=== PATIENT | male | born 1960 | race Caucasian/White ===

== ENCOUNTER 2022-04-04 07:36 | Outpatient (RCR) | payer OTHER, BC, SELFPAY | END 2023-03-20 11:04 | disposition home or self-care (01) | PROVIDERS: PCP Family Medicine; Visit Provider Orthopaedic Surgery | DX: S52.301S Unspecified fracture of shaft of right radius, sequela (principal); Z51.89 Encounter for other specified aftercare | CPT/HCPCS: 97530 ==

== ENCOUNTER 2023-05-18 12:51 | Emergency (ER) | payer BC, SELFPAY ==
[2023-05-18 13:10] VITALS: BP 134/72; PULSE 77; RESP 16; TEMP 36.2; O2SAT 98; BMI 28.9
--- NOTE | 2023-05-18 13:16 | ED.NURSE ---
Patient's TDap was 04/13/2021 according to the [facility] immunization report.
--- NOTE | 2023-05-18 13:29 | ED_ITS ---
HPI - General Adult General Chief complaint: Laceration/Wound Stated complaint: left hand laceration/work comp Time Seen by Provider: 05/18/23 13:15 History of Present Illness HPI narrative: Patient reports that he cut himself with a pocket knife on his index and long finger on the dorsum over the mid phalanx. He has got a couple of small lacerations there. They are not bleeding now. He is not certain was last tetanus shot was. We did check and he is up-to-date. No range of motion deficit of the hand Related Data Home Medications Medication Instructions Recorded Confirmed No Known Home Medications 09/13/22 10/11/22 Allergies Allergy/AdvReac Type Severity Reaction Status Date / Time No Known Drug Allergies Allergy Verified 10/11/22 13:30 Review of Systems Narrative: No prior similar injury PFSH PFS Medical History Skin cancer ?C44.90 - Unspecified malignant neoplasm of skin, unspecified (ICD-10) Surgical History History of left hip replacement ?Z96.642 - Presence of left artificial hip joint (ICD-10) History of foot surgery ?Z98.890 - Other specified postprocedural states (ICD-10) History of open reduction and internal fixation (ORIF) procedure (04/13/22) ?Z98.890 - Other specified postprocedural states (ICD-10) Social History Smoking Status: Never smoker Exam Narrative: Exam Narrative: Objective vital signs on are within normal limits Over the dorsum of the index and long finger there is tangential small lacerations are non gaping and non bleeding ;neurovascular exam of the hand and range of motion of the fingers is normal. Sensation is normal. Const: Vital Signs, click to edit/add: Vital Signs - 24 hr 05/18/23 13:10 Temperature 97.1 F L Pulse Rate [Right Pulse Oximeter] 77 Respiratory Rate 16 Blood Pressure [Ri ght Upper Arm] 134/72 Pulse Oximetry 98 Oxygen Delivery Me thod Room Air Course Vital Signs Vital signs: Initial Vital Signs Temperature 97.1 F L 05/18/23 13:10 Temperature Source Temporal Artery Scan 05/18/23 13:10 Pulse Rate 77 05/18/23 13:10 Respiratory Rate 16 05/18/23 13:10 Blood Pressure 134/72 05/18/23 13:10 Blood Pressure Mean 92 05/18/23 13:10 Blood Pressure Position Sitting 05/18/23 13:10 Pulse Oximetry 98 05/18/23 13:10 Oxygen Delivery Method Room Air 05/18/23 13:10 Vital Signs Temperature 97.1 F L 05/18/23 13:10 Pulse Rate 77 05/18/23 13:10 Respiratory Rate 16 05/18/23 13:10 Blood Pressure 134/72 05/18/23 13:10 Pulse Oximetry 98 05/18/23 13:10 Oxygen Delivery Method Room Air 05/18/23 13:10 Temperature 97.1 F L 05/18/23 13:10 Pulse Rate 77 05/18/23 13:10 Respiratory Rate 16 05/18/23 13:10 Blood Pressure 134/72 05/18/23 13:10 Pulse Oximetry 98 05/18/23 13:10 Oxygen Delivery Method Room Air 05/18/23 13:10 Medical Decision Making MDM Narrative Medical decision making narrative: The patient has small non gaping wounds that do not appear to involve neurovascular tendon structures in his fingers. Procedure after sterile scrub the wounds were closed with Dermabond with good skin edge approximation good hemostasis. The patient's kidneys dry for the next 2-3 days, then may cover with a bandage or shower bathe as normal. Recheck as needed. Watch for redness infection. Discharge Plan Discharge Clinical Impression: Laceration Patient Disposition: Home, Self-Care Condition: Improved Additional Instructions: Keep dry x 3 days, watch for redness, return as needed Activity Level: Light activity Discharge Diet: Regular Prescriptions: No Action No Known Home Medications Follow Up/Referrals: Willie Torres MD [Primary Care Provider] - Stand Alone Forms: [employer] Info Instructions
== END 2023-05-18 13:46 | disposition home or self-care (01) ==
LOC: ED 13:43
PROVIDERS: Emergency Provider Family Medicine; PCP Family Medicine
DX: S61.412A Laceration without foreign body of left hand, initial encounter (principal); W26.0XXA Contact with knife, initial encounter
CPT/HCPCS: 12001; 99282; 99283

== ENCOUNTER 2025-03-06 08:19 | Emergency (ER) | payer BC, SELFPAY ==
--- OUTSIDE RECORDS SUMMARY | 2025-03-06 08:22 | XMS_ITS | Clinical Summary ---
Author Organization [facility] Address [address] [place] [id number] Care Team Providers Care Ship'S Pilot Name Role Phone Willie Torres MD Primary Care Provider [phone] Source Comments You are receiving this document as you are listed as the primary care provider,follow-up provider, or the patient has been referred to you for consultation.This is in compliance with the Medicare and[facility] EHR Incentive Program,which states Providers who transition their patient to another setting of careor provider of care or refers their patient to another provider of care shouldprovide summary care record for each transition of care or referral. [facility] Desk Allergies No known active allergies Medications Multiple Vitamin (MULTI-VITAMIN OR) Take by mouth. 07/08/20 14 Active omega-3 fatty acids (FISH OIL) 1000 MG capsule Take by mouth. 07/08/20 14 Active Jecnsd-PYD-U-Mn -Dayna-Felton (MSM GLUCOSAMINE COMPLEX OR) Take by mouth. 07/08/20 14 Active acetaminophen (AKA TYLENOL EXTRA STRENGTH) 500 MG tablet Take 1,000 mg by mouth 2 times daily at 8 am and 2 pm. Maximum 4000mg per 24 hours 08/06/20 14 Active azithromycin (AKA ZITHROMAX) 250 MG tablet Indications: PN: 10/07/19 15 Active predniSONE (AKA DELTASONE) 10 MG tablet Indications: PN: 10/07/19 15 Active enoxaparin (LOVENOX) 30 MG/0.3ML SOLN injection Inject 30 mg subcutaneously daily (every 24 hours). 42 Syringe 0 07/23/20 14 Active Active Problems No known active problems Social History Tobacco Use Types Packs/Day Years Used Date Smoking Tobacco: Never Sex and Gender Information Value Date Recorded Sex Assigned at Not on file Legal Sex Male 7:15 AM CDT Gender Identity Not on file Sexual Orientation Not on file Last Filed Vital Signs Vital Sign Reading Time Taken Comments Blood Pressure 121/75 10/11/2014 11:42 AM REGISTERED DIET TECHNICIAN Pulse - - Temperature - - Respiratory Rate - - Oxygen Saturation - - Inhaled Oxygen Concentration - - Weight 86.2 kg (190 lb) 10/11/2014 11:42 AM REGISTERED DIET TECHNICIAN Height 180.3 cm (5' 11) 10/11/2014 11:42 AM REGISTERED DIET TECHNICIAN Body Mass Index 26.5 10/11/2014 11:42 AM REGISTERED DIET TECHNICIAN Plan of Treatment Health Maintenance Due Date Last Done Comments Colon Cancer Screening Plan Due 1960 Hep C Screening (Preventive Services) 1960 PSA Screening Discussion 1960 Adult Preventive Visit 01/07/1976 DTaP/Tdap/Td Vaccine (1 - Tdap) 1977 Cholesterol 1993 Pneumococcal Vaccine 50+ Yrs (1 of 1 - PCV) 01/07/2008 Zoster/Shingles Vaccine (1 of 2) 01/07/2008 COVID-19 Vaccine ( - 2023-2 5 season) 2024 Influenza Vaccine (#1) 2025 RSV Vaccine (1 - 1-dose 75+ series) 2033 HepA Vaccine Aged Out No longer eligi ble based on patient's age to complete this topic HepB Vaccine Aged Out No longer eligi ble based on patient's age to complete this topic Hib Vaccine Aged Out No longer eligi ble based on patient's age to complete this topic IPV (Polio) Vaccine Aged Out No longe r eligible based on patient's age to complete this topic MCV4 Vaccine Aged Out No longer eligi ble based on patient's age to complete this topic Meningococcal B Vaccine Aged Out No l onger eligible based on patient's age to complete this topic Insurance [facility] Care Teams Ship'S Pilot Relationship Specialty Start Date End Date Willie Torres MD [address] [place] [address] PCP - General 06/22/14
--- OUTSIDE RECORDS SUMMARY | 2025-03-06 08:22 | XMS_ITS | Clinical Summary ---
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 Provider ADVIL CAPS 5 IBUPROFEN CAPS [id number] Bhumi Aldrich MD ALEVE TABS 5 NAPROXEN SODIUM TABS [id number] Bhumi Aldrich MD MULTIVITAMINS ORAL CAPSULE 5 MULTIPLE VITAMIN [id number] Bhumi Aldrich MD FISH OIL CAPS 5 OMEGA-3 FATTY ACIDS CAPS [phone] Bhumi Aldrich MD Medications Administered No information available. Allergies, Adverse Reactions, Alerts Observed no known allergies at Results Date Name Value Unit Range Flag Description Internal Other: Authorizatio n - OBS PTSTAUTHDT 1 N PT Marthain g Authorization Date Office Visit: fax SMOK STATUS current some day smoker Tobacco smoking status MEDS REVIEW Done Documenta tion of current medications (procedure) Replaced Document: (P) PROTE IN, TOTAL AND PROTEIN ELECTROPHORESIS W/SCAN, GLUCO ... HGBA1C * % Hemoglobin A1c/Hemoglobin, total in Blood - % [id number] S * angioten sin 1 converting enzyme, serum RHEUMOT FACT * [iU]/mL Rheumato id factor [Units/volume] in Serum or Plasma ANASCR IFA * MAYNOR SCREEN , IFA LYME DIS AB * Borrelia burgdorferi.VlsE1+p epC10 Ab [Units/volume] in Serum by Immunoassay MPV 9.3 fL 7.5-12.5 N Platelet sury n volume [Entitic volume] in Blood by Molly PLATELETS 227 THOUSAND/UL 10*3/mm3 140-400 N Platelets [#/volume] in Blood by Automated count RDW 12.9 % 11.0-15.0 N Erythrocyte distribution width [Ratio] by Automated count MCHC 33.3 G/DL 32.0-36.0 N MCHC [Mass/ volume] by Automated count MCH 30.4 pg 27.0-33.0 N MCH [Entiti c mass] by Automated count MCV 91.3 fL 80.0-100. 0 N MCV [Entitic volume] by Automated count HCT 49.6 % 38.5-50.0 N Hematocrit [Volume Fraction] of Blood by Automated count HGB 16.5 g/dL 13.2-17.1 N Hemoglobin [Mass/volume] in Blood RBC 5.43 MILLION/UL 10*6/mm3 4.20-5.80 N Erythrocytes [#/volume] in Blood by Automated count WBC 5.4 THOUSAND/UL 10*3/mm3 3.8-10.8 N Leukocytes [#/volume] in Blood by Automated count ESR * mm/h Erythrocyte sedimentation rate by Westergren method GLUCOSE SER * mg/dL Glucose [Mass/volume] in Serum or Plasma INTRP * Interpretatio n ABNPROTBND3 * g/dL Abnormal Protein Band 3, g/dL ABNPROTBND2 * g/dL Abnormal Protein Band 2, g/dL ABNPROTBND * g/dL Abnormal P rotein Band 1, g/dL GAMMA GLOB * mg/dL Gamma glob ulin [Mass/volume] in Serum or Plasma by Electrophoresis [id number] * g/dL beta 2 g lobulin [id number] * g/dL beta 1 g lobulin ALPHA 2 GLOB * Alpha 2 globulin [Mass/volume] in Serum or Plasma by Electrophoresis ALPH-1 SR PE * g/dL alpha-1 globulin, serum, by protein electrophoresis ALBUM SER PE * g/dL albumin, serum by protein electrophoresis PROTEIN, TOT * g/dL Protein [Mass/volume] in Serum or Plasma LYME IGM 41 * Borrelia burgdorferi 41kD IgM Ab [Presence] in Serum by Immunoblot LYME IGM 39 * Borrelia burgdorferi 39kD IgM Ab [Presence] in Serum by Immunoblot LYME IGM 23 * Borrelia burgdorferi 23kD IgM Ab [Presence] in Serum by Immunoblot LYME WB M * Borrelia burgdorferi IgM Ab [Presence] in Serum by Immunoblot LYME IGG 93 * Borrelia burgdorferi 93kD IgG Ab [Presence] in Serum by Immunoblot LYME IGG 66 * Borrelia burgdorferi 66kD IgG Ab [Presence] in Serum by Immunoblot LYME IGG 58 * Borrelia burgdorferi 58kD IgG Ab [Presence] in Serum by Immunoblot LYME IGG 45 * Borrelia burgdorferi 45kD IgG Ab [Presence] in Serum by Immunoblot LYME IGG 41 * Borrelia burgdorferi 41kD IgG Ab [Presence] in Serum by Immunoblot LYME IGG 39 * Borrelia burgdorferi 39kD IgG Ab [Presence] in Serum by Immunoblot LYME IGG 30 * Borrelia burgdorferi 30kD IgG Ab [Presence] in Serum by Immunoblot LYME IGG 28 * Borrelia burgdorferi 28kD IgG Ab [Presence] in Serum by Immunoblot LYME IGG 23 * Borrelia burgdorferi 23kD IgG Ab [Presence] in Serum by Immunoblot LYME IGG 18 * Borrelia burgdorferi 18kD IgG Ab [Presence] in Serum by Immunoblot LYME AB INT 2.55 H Lyme Ab I nterp.,EIA Internal Other: Authorizatio n - OBS [email or web address] Yes Authoriza tion: Release of Information - Authorize [facility] - Payment and Healthcare Operations ROIAUTHOTHER Yes Authoriz ation: Release of Information - Authorize Others/Insurance - Payment and Healthcare Operations HIECONSENT Yes Consent To Release information to the Health Information Exchange (HIE) [email or web address] Yes Authorizat ion: Authorization for [facility] to leave messages, voicemail, send text messages, send emails AUTHRELHCARE Yes Authoriz ation: Release/Retrieval of Information to/from Healthcare Facilities, Pharmacy Benefit Payers and Providers AUTHPRIVPRAC Yes Authoriz ation: Notice of privacy practices AUTHBENEFIT Yes Authoriza tion: Assignment of Benefits and Payment Agreement Plan of Care Type Date Detail Pending order We will call renate h test results Pending order Occupational The rapy Pending order SHIELA (Angiotensin Converting Enzyme) Pending order MAYNOR Pending order CBC no Diff/ Rogerio telet Pending order ESR (Sedimentati on Rate) Pending order Glucose Fasting Pending order Hemoglobin A1C Pending order Lyme Total Ab w/ Reflex (reflex to Western Blot) Pending order Protein Electrop horesis Serum w/Interp Pending order Rheumatoid (RA) Factor Pending order Follow up as nee ded Pending order Instructions for Staff Pending order EMG one upper/on e lower Pending order Follow up as nee ded Pending order We will call wit h test results Procedures Code Procedure Name Date Entry Date CPT-68927 Nerve Conduction 7-8 studies CPT-24386 EMG with NCS (5+ muscles) - 1 limb ORDERS We will call with test results ORDERS SHIELA (Angiotensin Converting Enzyme) 09/27 ORDERS MAYNOR ORDERS CBC no Diff/ Platelet 09/27 ORDERS ESR (Sedimentation Rate) 201 03/02/26 ORDERS Glucose Fasting ORDERS Hemoglobin A1C ORDERS Lyme Total Ab w/Refl ex (reflex to Western Blot) ORDERS Rheumatoid (RA) Factor 09/27 ORDERS Protein Electrophoresis Serum w/Interp 20 18/09/[address] [facility]-[id number] Documentation of current medicatio ns ORDERS Occupational Therapy ORDERS Follow up as needed ORDERS Instructions for Staff 08/16 ORDERS EMG one upper/one lower 2015 CPT-15714 Nerve Conduction 9-10 studies CPT-30502 EMG with NCS (5+ muscles) - 1 limb 09/10 ORDERS Follow up as needed ORDERS We will call with test results [facility]-[id number] Documentation of current medicatio ns Vital Signs Date Name Value Unit Description Height 70 [in_us] height E&M BMI (Body Mass Index) 27.79 kg/m2 Bod y Mass Index (Ratio) BP Diastolic 80 mm[Hg] blood pressu re, diastolic BP Systolic 124 mm[Hg] blood pressur e, systolic Heart Rate 89 /min pulse rate Weight Measured 193 [lb_av] weight E& M Weight Measured 193 [lb_av] weight E& M Immunizations No information available. Advance Directives No information available.
--- OUTSIDE RECORDS SUMMARY | 2025-03-06 08:22 | XMS_ITS | Encounter Summary ---
Author Organization [facility] Address [address] [place] [address] Care Team Providers Care Surveillance Director Name Role Phone Willie Torres MD Primary Care Provider Encounter Details Date Type Department Care Team (Late st Contact Info) Description 07/09/2014 Orders Only [facility] [address] [place] [id number] Misael Key MD [address] [place] [address] [place] [address] DJD (degenerative joint disease), ankle and foot Social History Tobacco Use Types Packs/Day Years Used Date Smoking Tobacco: Never Assessed Sex and Gender Information Value Date Recorded Sex Assigned at Not on file Legal Sex Male 7:15 AM CDT Gender Identity Not on file Sexual Orientation Not on file documented as of this encounter Plan of Treatment Not on file documented as of this encounter Visit Diagnoses Diagnosis DJD (degenerative joint disease), ankle and foot Osteoarthrosis, unspecified whether generalized or localized, ankle and foot documented in this encounter Care Teams Surveillance Director Relationship Specialty Start Date End Date Willie Torres MD [address] [place] [address] PCP - General 06/22/14 documented as of this encounter
[2025-03-06 08:28] VITALS: BP 135/82; PULSE 71; RESP 18; TEMP 36.5; O2SAT 100; BMI 27.4
--- NOTE | 2025-03-06 08:56 | CRLHL7_ITS ---
For Patients: As a result of the Century Cures Act, medical imaging exams and procedure reports are released immediately into your electronic medical record. You may view this report before your referring provider. If you have questions, please contact your health care provider. INDICATION: Right lower leg swelling COMPARISON: None. TECHNIQUE: Webber-scale, color, and duplex Doppler imaging of the right lower extremity veins. Compression and augmentation attempted where anatomically and clinically feasible. FINDINGS: Laterality: Right Examined veins: Common femoral, proximal deep femoral, superficial femoral, popliteal, peroneal, posterior tibial Greater saphenous The examined veins are patent with normal grayscale appearance and normal compressibility where anatomically feasible. Normal color Doppler flow. Normal venous waveforms on duplex Doppler ultrasound with normal augmentation. A specific area of concern in the right distal calf was evaluated. There is a thrombosed superficial varicosity. The left common femoral vein is sampling for comparison and is normal. IMPRESSION: 1. No right lower extremity deep vein thrombosis. 2. Thrombosed superficial varicose vein in the right distal calf. Dictated by Ada Krueger MD @ 03/06/2025 10:32:06 AM (Electronically Signed)
--- NOTE | 2025-03-06 09:03 | ED.GENADULT ---
HPI - General Adult General Date Seen: 03/06/25 Chief complaint: Extremity Pain/Injury, Lower Stated complaint: R leg swelling Time Seen by Provider: 03/06/25 08:35 Source: patient Mode of arrival: ambulatory Limitations: no limitations History of Present Illness HPI narrative: Patient is a very nice gentleman who presents here with a lump on his right inner leg, all below his knee for the last 3 days, painful to pressure. Worried about a possible DVT as his identical twin brother has a history of these. No chest pain no shortness of breath, just came back from [place] 2 weeks ago. No personal history himself of DVTs, otherwise describes himself as healthy, does remember injury over this area. No tick bites rashes, fevers chills or sweats, syncope, hemoptysis or other issues. Swelling has not gotten worse, stayed about the same. Not worse or improved with standing, walking, or elevation. Has not been taking any medications for this. Related Data Home Medications ?Medication ?Instructions ?Recorded ?Confirmed No Known Home Medications 09/13/22 03/06/25 Allergies Allergy/AdvReac Type Severity Reaction Status Date / Time No Known Drug Allergies Allergy Verified 03/06/25 08:27 Review of Systems Status of ROS: Reports: 10 or more systems reviewed and unremarkable except as noted in History and below [facility] Medical History Skin cancer ?C44.90 - Unspecified malignant neoplasm of skin, unspecified (ICD-10) Surgical History History of left hip replacement ?Z96.642 - Presence of left artificial hip joint (ICD-10) History of foot surgery ?Z98.890 - Other specified postprocedural states (ICD-10) History of open reduction and internal fixation (ORIF) procedure (04/13/22) ?Z98.890 - Other specified postprocedural states (ICD-10) Social History Smoking Status: Never smoker Exam Narrative: Exam Narrative: On examination in room 3 he is in no apparent distress he is pleasant and alert, examination of the right lower leg shows a little swelling on the medial side approximately 8-10 cm proximal to his medial malleolus, is not movable, tender to touch, almost feels like a bit of a rent in his fascia. I do not detect any evidence of a DVT, there is no other additional swelling, Homans test is negative, dorsiflexion plantar flexion distal pulses PT and dorsalis pedis are normal, cap refills normal neurologically intact in his lower extremities, he walked in here. Chest is good air entry bilaterally no wheezing crackles noted no evidence of splinting, heart sounds are normal no clicks murmurs or gallops Const: Vital Signs, click to edit/add: Vital Signs - 24 hr 03/06/25 08:28 Temperature 97.7 F Pulse Rate [Pulse Oximeter] 71 Respiratory Rate 18 Blood Pressure [Ri ght Upper Arm] 135/82 Pulse Oximetry 100 Oxygen Delivery Me thod Room Air Course Vital Signs Vital signs: Initial Vital Signs Temperature 97.7 F 03/06/25 08:28 Temperature Source Temporal Artery Scan 03/06/25 08:28 Pulse Rate 71 03/06/25 08:28 Respiratory Rate 18 03/06/25 08:28 Blood Pressure 135/82 03/06/25 08:28 Blood Pressure Mean 99 03/06/25 08:28 Blood Pressure Position Sitting 03/06/25 08:28 Pulse Oximetry 100 03/06/25 08:28 Oxygen Delivery Method Room Air 03/06/25 08:28 Vital Signs Temperature 97.7 F 03/06/25 08:28 Pulse Rate 71 03/06/25 08:28 Respiratory Rate 18 03/06/25 08:28 Blood Pressure 135/82 03/06/25 08:28 Pulse Oximetry 100 03/06/25 08:28 Oxygen Delivery Method Room Air 03/06/25 08:28 Temperature 97.7 F 03/06/25 08:28 Pulse Rate 71 03/06/25 08:28 Respiratory Rate 18 03/06/25 08:28 Blood Pressure 135/82 03/06/25 08:28 Pulse Oximetry 100 03/06/25 08:28 Oxygen Delivery Method Room Air 03/06/25 08:28 Medical Decision Making MDM Narrative Medical decision making narrative: I considered DVT, or superficial thrombophlebitis. I think there is also possibility that this could be a slight panniculitis, does not have a history of previous colder other issues. Has not been taking any medications that could cause erythema nodosum. We will go ahead and do an ultrasound to rule DVT is providers are dorsally bad at this. Medical Records Medical records reviewed: Yes I reviewed the patient's medical records Imaging Data Right leg venous ultrasound: Attestation: I have reviewed the pertinent imaging results. My impression: Negative for DVT by my review Radiologist's impression: [place] [address] Diagnostic Imaging Report Patient: Oliver Bravo MR#: [id number] : 1960 Acct:[id number] Loc: ED Service Date: 03/06/[address]: Ordering Physician: Rob Jimenez M.D. Date of Service: 03/06/25 Procedure(s): US venous LE RT Accession Number(s): [id number] cc: Willie Torres M.D.; Rob Jimenez M.D.~ For Patients: As a result of the Cures Act, medical imaging exams and procedure reports are released immediately into your electronic medical record. You may view this report before your referring provider. If you have questions, please contact your health care provider. INDICATION: Right lower leg swelling COMPARISON: None. TECHNIQUE: Webber-scale, color, and duplex Doppler imaging of the right lower extremity veins. Compression and augmentation attempted where anatomically and clinically feasible. FINDINGS: Laterality: Right Examined veins: Common femoral, proximal deep femoral, superficial femoral, popliteal, peroneal, posterior tibial Greater saphenous The examined veins are patent with normal grayscale appearance and normal compressibility where anatomically feasible. Normal color Doppler flow. Normal venous waveforms on duplex Doppler ultrasound with normal augmentation. A specific area of concern in the right distal calf was evaluated. There is a thrombosed superficial varicosity. The left common femoral vein is sampling for comparison and is normal. IMPRESSION: 1. No right lower extremity deep vein thrombosis. 2. Thrombosed superficial varicose vein in the right distal calf. Dictated by Ada Krueger MD @ 03/06/2025 10:32:06 AM (Electronically Signed) Discharge Plan Discharge Clinical Impression: Superficial thrombophlebitis of right leg Patient Disposition: Home, Self-Care Condition: Stable Instructions: Superficial Thrombophlebitis (ED) Additional Instructions: Home rest, leg compression stockings are helpful for this. Heat over the area, elevation, NSAIDs ibuprofen 800 mg p.o. t.i.d., follow-up if increasing pain swelling, or other issues. These typically resolve it least the acute phase over the next 10-14 days, but a palpable area may remain for up to 3-4 months. Activity Level: Light activity Prescriptions: No Action No Known Home Medications Follow Up/Referrals: Willie Torres MD [Primary Care Provider, Family Practice] Stand Alone Forms: [employer] Info Instructions
--- OUTSIDE RECORDS SUMMARY | 2025-03-06 09:05 | XMS_ITS | Clinical Summary ---
Author Organization [facility] Address [address] , [address] [place] [address] Phone Care Team Providers Care Medical Education Coordinator Name Role Phone [facility] Unavailable Unava ilable Conditions or Problems Problem Name Problem Code Onset Date Status Entry Date Provider Comment Standard Description Annotate Median neuropathy, right 214934896 (SNOMED CT) Active Jamir Cowan MD Median neuropathy Bilat carpal tunnel syndrome G56.00 (ICD-10-CM) Active Bhumi Aldrich MD Carpal tunnel syndrome, unspecified upper limb Paresthesias 27303653 (SNOMED CT) Active Bhumi Aldrich MD Paresthesia Peripheral neuropathy 864654148 (SNOMED CT) Active Bhumi Aldrich MD Peripheral nerve disease Medications Medication Instructions Start Date Stop Date Generic Name [facility] Provider ADVIL CAPS 5 IBUPROFEN CAPS [id number] Bhumi Aldrich MD ALEVE TABS 5 NAPROXEN SODIUM TABS [id number] Bhumi Aldrich MD MULTIVITAMINS ORAL CAPSULE 5 MULTIPLE VITAMIN [id number] Bhumi Aldrich MD FISH OIL CAPS 5 OMEGA-3 FATTY ACIDS CAPS [id number] Bhumi Aldrich MD Medications Administered No information [...] Hemoglobin A1c/Hemoglobin, total in Blood - % [id number] S * angioten sin 1 converting enzyme, [...] [Mass/volume] in Serum or Plasma by Electrophoresis [id number] * g/dL beta 2 g lobulin [id number] * g/dL beta 1 g lobulin ALPHA [...] Procedures Code Procedure Name Date Entry Date CPT-81192 Nerve Conduction 7-8 studies CPT-01714 EMG with NCS (5+ muscles) - 1 limb ORDERS We will call with test results ORDERS SHIELA (Angiotensin Converting Enzyme) 09/27 ORDERS MAYNOR ORDERS CBC no Diff/ Platelet 09/27 ORDERS ESR (Sedimentation Rate) 201 03/02/26 ORDERS Glucose Fasting ORDERS Hemoglobin A1C ORDERS Lyme Total Ab w/Refl ex (reflex to Western Blot) ORDERS Rheumatoid (RA) Factor 09/27 ORDERS Protein Electrophoresis Serum w/Interp 20 18/09/25 [facility]-[id number] Documentation of current medicatio ns ORDERS Occupational Therapy ORDERS Follow up as needed ORDERS Instructions for Staff 08/16 ORDERS EMG one upper/one lower 2015 CPT-54423 Nerve Conduction 9-10 studies CPT-86506 EMG with NCS (5+ muscles) - 1 limb 09/10 ORDERS Follow up as needed ORDERS We will call with test results [facility]-[id number] Documentation of current medicatio ns Vital Signs [...]
--- OUTSIDE RECORDS SUMMARY | 2025-03-06 09:06 | XMS_ITS | Clinical Summary ---
Author Organization [facility] Address [address] [place] [address] Care Team Providers Care Senior Net Application Developer Name Role Phone Willie Torres MD Primary Care Provider Allergies No known active allergies Medications multivitamin (MVI) tablet Take 1 tablet by mouth once daily. 0 5 Active omega-3 fatty acids-vitamin E (FISH OIL) 1,000 mg cap Take 2 capsules by mouth once daily. 0 5 Active sildenafil citrate (VIAGRA) 100 mg tabletIndication s:Erectile dysfunction, unspecified erectile dysfunction type Take 1 Tablet (100 mg) by mouth once daily if needed for Erectile Dysfunction. Take 30 min to 4 hours before sexual activity. Max 100mg in 24 hours 10 Tablet 2 2 Active doxycycline hyclate 100 mg capsuleIndicatio ns:Influenza-lik e illness Take 1 Capsule (100 mg) by mouth two times daily for 14 days. 28 Capsule 5 03/12/20 25 Active Active Problems Problem Noted Date Diagnosed Date Peripheral sensory neuropathy 11/07/2017 Bilateral edema of lower extremity 11/03/2015 Varicose veins 11/03/2015 Lipoma of torso 11/03/2015 Hammer toe of right foot 11/03/2015 Melanoma 06/18/2013 Encounters Date Type Department Care Team Description 02/26/2025 Telephone [facility] [address] [place] [address] Stella Lainez PA Results 02/25/2025 12:50 PM CDT Office Visit [facility] [address] [place] [address] Stella Lainez PA Fever 02/25/2025 Travel from Last 3 Months Immunizations Immunization Administration Dates Next Due Tdap 04/13/2021,07/07/2015 Zoster (Shingrix-RZV, recombinant) 10/26/2021, Family History Medical History Relation Name Comments Stroke Father smoker, at 80. Anesthesia Problem Neg. 1 Cancer-colon Neg. 2 Cancer-prostate Neg. 3 Diabetes Neg. 4 Heart Disease Neg. 5 Relation Name Status Comments Father Neg. 1 Neg. 2 Neg. 3 Neg. 4 Neg. 5 Social History Tobacco Use Types Packs/Day Years Used Date Smoking Tobacco: Former Cigars Smokeless Tobacco: Never Tobacco Cessation:Counseling Given: Yes Alcohol Use Standard Drinks/Week Comments Yes 5 (1 standard drink = 0.6 oz pur e alcohol) wine with a meal PHQ-2 Answer Date Recorded PHQ-2 TOTAL SCORE 0 12/22/2020 Social Connections Answer Date Recorded Do you often feel lonely or isolated from those around you? 0 10/01/2024 Financial Resource Strain Answer Date R ecorded Difficulty of Paying Living Expenses 3 10/01/2024 Difficulty of Paying Living Expenses Not on file 10/01/2024 Food Insecurity Answer Date Recorded Do you worry your food will run out before you are able to buy more? 1 10/01/2024 Transportation Needs Answer Date Record ed Does lack of transportation keep you from medica l appointments? 1 10/01/2024 Does lack of transportation keep you from work, meetings or getting things that you need? 1 10/01/2024 Housing Stability Answer Date Recorded What is your housing situation today? 1 10/01/2024 Utilities Answer Date Recorded Do you have trouble paying f or utilities (for example, heat, electricity, water, phone)? 1 10/01/2024 Sex and Gender Information Value Date Recorded Sex Assigned at Not on file Legal Sex Male 5:40 AM MEDIA PROFESSIONAL Gender Identity Not on file Sexual Orientation Not on file Obstetrics History Last Filed Vital Signs Vital Sign Reading Time Taken Comments Blood Pressure 110/73 02/25/2025 1:08 PM CDT Pulse 80 02/25/2025 1:08 PM CDT Temperature 36.7 C (98.1 F) 02/25/2025 1:08 PM CDT Respiratory Rate 20 02/02/2021 9:32 AM CDT Oxygen Saturation 98% 02/25/2025 1:08 PM CDT Inhaled Oxygen Concentration - - Weight 90.9 kg (200 lb 4.8 oz) 02/25/2025 1:08 P M CDT Height 175.3 cm (5' 9) 10/01/2024 9:13 AM MEDIA PROFESSIONAL Body Mass Index 29.58 10/01/2024 9:13 AM MEDIA PROFESSIONAL Plan of Treatment Health Maintenance Due Date Last Done Comments Colonoscopy through age 75 2003 Pneumococcal series for age 50+ (1 of 1 - PCV) 01/07/2008 Depression screening for age 12+ 12/22/2021 12/22/2020, 01/17/2017, 11/03/2015 Lipids for age 45-75 11/14/2022 11/14/2017, 07/19/20 16 AAA screening age 65-74 2023 COVID-19 vaccine series ( - 2023- season) 2024 Influenza Vaccine (#1) 2025 BMI (ht and wt on same day) for age 18+ 10/01/2025 10/01/2024, 03/30/2021, 12/22/2020, Additional history exists Tetanus booster 04/13/2031 04/13/2021, 07/07/2015 RSV vaccine for adults or (1 - 1-dose 75+ series) 2033 Hepatitis C screening for age 18-79 Completed 12/05/2017 Zoster (shingles) series for age 50+ Completed 10/26/2021, 12/22/2020 Hepatitis B series for 19+ Aged Out N o longer eligible based on patient's age to complete this topic Procedures Procedure Name Priority Date/Time Associated Diagnosis Comments URINALYSIS MACROSCOPIC - [facility] ONLY POC DIP ([facility]) Routine 02/25/2025 1:38 PM CDT Influenza-like illness CBC WITH AUTO DIFFERENTIAL Routine 02/25/2025 1:37 PM CDT Influenza-like illness COMP METABOLIC PANEL Routine 02/25/2025 1:37 PM CDT Influenza-like illness LYME SCREEN W/REFLEX Routine 02/25/2025 1:37 PM CDT Influenza-like illness EHRLICHIA CHAFFEENSIS DNA REAL TIME PCR ([facility]) Routine 02/25/2025 1:37 PM CDT Influenza-like illness BABESIA MICROTI PCR Routine 02/25/2025 1 :37 PM CDT Influenza-like illness ANAPLASMA PHAGOCYTOPHILUM DNA, QL REAL TIME PCR ([facility]) Routine 02/25/2025 1:37 PM CDT Influenza-like illness URINE CULTURE Routine 02/25/2025 1:36 PM CDT Influenza-like illness URINALYSIS MICROSCOPIC Routine 1:36 PM CDT Influenza-like illness ANTI HCV Routine 12/05/2017 10:45 AM CDT Need for hepatitis C screening test LIPID PANEL W REFLEX MEASURED LDL Routine 11/14/2017 8:42 AM CDT Dyslipidemia from Last 3 Months or Most Recently Relevant to Health Maintenance Results * POCT Urinalysis Dipstick Only [[id number]] (02/25/2025 1:38 PM CDT) PH 6.5 5.0 - 8.0 [facility] SPECIFIC GRAVITY < OR = 1.005 1.001 - 1.035 [facility] Comment: Specific Eden values resulted are outside the analytical measurement range of this device. Recommend repeat/additional testing as clinically indicated. GLUCOSE NEGATIVE NEGATIVE [facility] BILIRUBIN NEGATIVE NEGATIVE [facility] KETONES NEGATIVE NEGATIVE [facility] OCCULT BLOOD NEGATIVE NEGATIVE [facility] PROTEIN NEGATIVE NEGATIVE [facility] NITRITE NEGATIVE NEGATIVE [facility] LEUKOCYTE ESTERASE NEGATIVE NEGATIVE [facility] Urine URINE SPECIMEN / Unknown 02/25/2025 1:38 PM CDT 02/25/2025 1:38 PM CDT Stella MACIEL URINE Final Result [facility] [address] [place] [address], [place] [phone] [facility] [address] [place] [address] * EHRLICHIA CHAFFEENSIS DNA REAL TIME PCR ([facility]) [[id number]] - [facility] (02/25/2025 1:37 PM CDT) EHRLICHIA CHAFFEENSIS DNA REAL TIME PCR NOT DETECTED [facility]/ [employer] [facility], Comment: REFERENCE RANGE: NOT DETECTED This test was developed and its analytical performance characteristics have been determined by [employer]. It has not been cleared or approved by FDA. This assay has been validated pursuant to the CLIA regulations and is used for clinical purposes. Blood BLOOD SPECIMEN / Unknown 02/25/2025 1:37 PM CDT 02/25/2025 1:37 PM CDT Stella MACIEL SEND OUTS Final Result [facility] [address] [place] [address], [facility], [address] [address] [place] [address] * ANAPLASMA PHAGOCYTOPHILUM DNA, QL REAL TIME PCR ([facility]) [[id number]] - [facility] (02/25/2025 1:37 PM CDT) ANAPLASMA PHAGOCYTOPHILUM DNA, QL REAL TIME PCR NOT DETECTED [facility]/ [employer] [facility], Comment: REFERENCE RANGE: NOT DETECTED This test was developed and its analytical performance characteristics have been determined by [employer]. It has not been cleared or approved by FDA. This assay has been validated pursuant to the CLIA regulations and is used for clinical purposes. Blood BLOOD SPECIMEN / Unknown 02/25/2025 1:37 PM CDT 02/25/2025 1:37 PM CDT Stella MACIEL SEND OUTS Final Result Performing Organization Address [facility]/ZIP Co de Phone Number [facility] [address] [place] [address], [facility], [address] [place] [address] * Babesia Microti PCR [[id number]] - Patients with systemic symptoms (fevers, chills) (02/25/2025 1:37 PM CDT) [facility] BABESIA MICROTI DNA, REAL TIME PCR NOT DETECTED [facility], Comment: REFERENCE RANGE: NOT DETECTED This test was developed and its analytical performance characteristics have been determined by [employer]. It has not been cleared or approved by FDA. This assay has been validated pursuant to the CLIA regulations and is used for clinical purposes. Blood BLOOD SPECIMEN / Unknown 02/25/2025 1:37 PM CDT 02/25/2025 1:37 PM CDT Stella MACIEL SEND OUTS Final Result Performing Organization Address City/[facility]/ZIP Co de Phone Number [facility] [address] [place] [address], [facility], [address] [place] [address] * Lyme Screen w/Reflex [[id number]] (02/25/2025 1:37 PM CDT) [facility] LYME AB, SCREEN < or = 0.90 index [facility], Comment: REFERENCE RANGE: < OR = 0.90 Index Index Interpretation < OR = 0.90 NEGATIVE 0.91 - 1.09 EQUIVOCAL > OR = 1.10 POSITIVE This assay measures Lyme Disease (Borrelia burgdorferi) IgG plus IgM antibodies; it does not distinguish results that are both IgG and IgM positive from results that are either IgG or IgM positive. As recommended by the Centers for Disease Control and Prevention (CDC), all samples with positive or equivocal results in this screening assay will be tested using separate supplemental Lyme IgG and IgM immunoassays. Positive or equivocal screening assay results should not be interpreted as truly positive until verified as such using the supplemental assays. Screening and/or supplemental tests for Lyme disease antibodies may be falsely negative in early stages of Lyme disease, including the period when erythema migrans is apparent. These assays may be falsely positive in patients with other spirochetal diseases (e.g., syphilis) or infectious mononucleosis. Blood BLOOD SPECIMEN / Unknown 02/25/2025 1:37 PM CDT 02/25/2025 1:37 PM CDT Stella MACIEL SEND OUTS Final Result [facility] [address] [place] [address], [facility], [address] [place] [address] * (ABNORMAL) CBC AND DIFFERENTIAL (02/25/2025 1:37 PM CDT) [facility] WHITE BLOOD CELL COUNT 5.3 3.8 - 10.8 Thousand/u L [facility] RED BLOOD CELL COUNT 4.79 4.20 - 5.80 Million/uL [facility] HEMOGLOBIN 14.4 13.2 - 17.1 g/dL [facility] HEMATOCRIT 43.6 38.5 - 50.0 % [facility] MCV 91.0 80.0 - 100.0 fL [facility] MCH 30.1 27.0 - 33.0 pg [facility] MCHC 33.0 32.0 - 36.0 g/dL [facility] Comment: For adults, a slight decrease in the calculated MCHC value (in the range of 30 to 32 g/dL) is most likely not clinically significant; however, it should be interpreted with caution in correlation with other red cell parameters and the patient's clinical condition. RDW 12.0 11.0 - 15.0 % [facility] PLATELET COUNT 185 140 - 400 Thousand/u L [facility] MPV 11.1 7.5 - 12.5 fL [facility] ABSOLUTE NEUTROPHILS 4,410 1,500 - 7,800 cells/uL [facility] ABSOLUTE LYMPHOCYTES 413(L) 850 - 3,900 cells/uL [facility] ABSOLUTE MONOCYTES 456 200 - 950 cells/uL [facility] ABSOLUTE EOSINOPHILS 0(L) 15 - 500 cells/uL [facility] ABSOLUTE BASOPHILS 21 0 - 200 cells/uL [facility] NEUTROPHILS 83.2 % [facility] LYMPHOCYTES 7.8 % [facility] MONOCYTES 8.6 % [facility] EOSINOPHILS 0.0 % [facility] BASOPHILS 0.4 % [facility] Blood BLOOD SPECIMEN / Unknown 02/25/2025 1:37 PM CDT 02/25/2025 1:37 PM CDT Stella MACIEL HEMATOLOGY Final Result [facility] [address] [place] [address], [facility] [facility] [address] [place] [address] * (ABNORMAL) COMP METABOLIC PANEL (02/25/2025 1:37 PM CDT) [facility] GLUCOSE 128(H) 65 - 99 mg/dL [facility] Comment: Fasting reference interval For someone without known diabetes, a glucose value >125 mg/dL indicates that they may have diabetes and this should be confirmed with a follow-up test. UREA NITROGEN (BUN) 23 7 - 25 mg/dL [facility] CREATININE 0.98 0.70 - 1.35 mg/dL [facility] EGFR 85 > OR = 60 mL/min/1. 73m2 [facility] BUN/CREATININE RATIO SEE NOTE: (calc) [facility] Comment: Not Reported: BUN and Creatinine are within reference range. SODIUM 137 135 - 146 mmol/L [facility] POTASSIUM 4.6 3.5 - 5.3 mmol/L [facility] CHLORIDE 104 98 - 110 mmol/L [facility] CARBON DIOXIDE 26 20 - 32 mmol/L [facility] CALCIUM 8.9 8.6 - 10.3 mg/dL [facility] PROTEIN, TOTAL 6.2 6.1 - 8.1 g/dL [facility] ALBUMIN 3.6 3.6 - 5.1 g/dL [facility] GLOBULIN 2.6 1.9 - 3.7 g/dL (calc) [facility] ALBUMIN/GLOBULIN RATIO 1.4 1.0 - 2.5 (calc) [facility] BILIRUBIN, TOTAL 0.7 0.2 - 1.2 mg/dL [facility] ALKALINE PHOSPHATASE 74 35 - 144 U/L [facility] AST 37(H) 10 - 35 U/L [facility] ALT 43 9 - 46 U/L [facility] Blood BLOOD SPECIMEN / Unknown 02/25/2025 1:37 PM CDT 02/25/2025 1:37 PM CDT Stella MACIEL CHEMISTRY Final Result [employer] [facility] [address] [place] [address], [facility] [address] [place] [address] * URINALYSIS MICROSCOPIC [72090.1] - routine (02/25/2025 1:36 PM CDT) RBC 0-2 0-2, None Seen /HPF 02/26/2025 5:08 AM CDT [facility] WBC 0-2 0-2, 3-5, None Seen /HPF 02/26/2025 5:08 AM CDT [facility] BACTERIA None Seen None Seen, Rare, Few Bacteria/ HPF 02/26/2025 5:08 AM CDT [facility] EPITHELIAL CELLS None Seen None Seen, Few Epi/HPF 02/26/2025 5:08 AM CDT [facility] HYALINE CASTS 0-2 0-2, 3-5 /LPF 02/26/2025 5:08 AM CDT [facility] Urine URINE SPECIMEN / Unknown Non-Blood / Unknown 02/25/2025 1:36 PM CDT 02/25/2025 1:36 PM CDT Stella MACIEL URINE Final Result [facility] [address] [place] [address], * URINE CULTURE [35230.2] (02/25/2025 1:36 PM CDT) CULTURE No growth (<1,000 CFU/mL) 02/27/2025 7:03 PM CDT [facility] Urine URINE SPECIMEN / Unknown Non-Blood / Unknown 02/25/2025 1:36 PM CDT 02/25/2025 1:36 PM CDT us Stella MACIEL MICROBIOLOGY Final Result [facility] [address] [place] [address], [place] * ANTI HCV [28450.2] (12/05/2017 10:45 AM CDT) HEPATITIS C ANTIBODY Non-React jose Non-React jose 12/05/2017 4:55 PM CDT [facility] Comment:Antibodies to HCV no t detected; does not exclude the possibility of exposure to HCV. Blood BLOOD SPECIMEN / Unknown Venipuncture / Unknown 12/05/2017 10:45 AM CDT 12/05/2017 10:45 AM CDT us Willie Torres MD SEND OUTS Final Result [facility] [address] [place] [address], [place] * LIPID PANEL W REFLEX MEASURED LDL (11/14/2017 8:42 AM CDT) CHOLESTEROL,TOTAL 174 100 - 199 mg/dL 11/14/2017 2:02 PM CDT [facility] TRIGLYCERIDES 67 <150 mg/dL 11/14/2017 2:02 PM CDT [facility] HDL CHOLESTEROL 41 >40 mg/dL 8 2:02 PM CDT [facility] NON-HDL CHOLESTEROL 133 <145 mg/dl 11/14/2017 2:02 PM CDT [facility] CHOL/HDL RATIO 4.24 <4.50 11/14/2017 2:02 PM CDT [facility] LDL CHOLESTEROL 120 <=130 mg/dL 11/14/2017 2:02 PM CDT [facility] PROVIDER ORDERED STATUS RANDOM 11/14/2017 2:02 PM CDT [facility] Blood BLOOD SPECIMEN / Unknown Venipuncture / Unknown 11/14/2017 8:42 AM CDT 11/14/2017 8:42 AM CDT Willie Torres MD CHEMISTRY Final Result [facility] [address] [place] [address], [place] from Last 3 Months or Most Recently Relevant to Health Maintenance Insurance [facility] MEDICARE PART A HB ONLY Care Teams Senior Net Application Developer Relationship Specialty Start Date End Date Willie Torres MD [address] [place] [address] PCP - General Family Practice 11/02/15
== END 2025-03-06 11:01 | disposition home or self-care (01) ==
PROVIDERS: Emergency Provider Family Medicine; PCP Family Medicine
DX: I80.01 Phlebitis and thrombophlebitis of superficial vessels of right lower extremity (principal)
CPT/HCPCS: 93971; 99284

== ENCOUNTER 2025-03-30 09:08 | Emergency (ER) | payer BC, SELFPAY ==
--- OUTSIDE RECORDS SUMMARY | 2025-03-30 09:10 | XMS_ITS | Clinical Summary ---
Author Organization [facility] Address [address] [place] [address] Care Team Providers Care Chief Cloth Finishing Range Operator Name Role Phone Willie Torres MD Primary Care Provider [phone] Source Comments You are receiving this document as you are listed as the primary care provider,follow-up provider, or the patient has been referred to you for consultation.This is in compliance with the Medicare and[facility] EHR Incentive Program,which states Providers who transition their patient to another setting of careor provider of care or refers their patient to another provider of care shouldprovide summary care record for each transition of care or referral. [facility] Allergies No known active allergies Medications Multiple Vitamin (MULTI-VITAMIN OR) Take by mouth. 07/08/20 14 Active omega-3 fatty acids (FISH OIL) 1000 MG capsule Take by mouth. 07/08/20 14 Active [facility] ([facility]M GLUCOSAMINE COMPLEX OR) Take by mouth. [...] Comments Blood Pressure 121/75 10/11/2014 11:42 AM PROCESS MACHINE OPERATOR Pulse - - Temperature - - Respiratory Rate - - Oxygen Saturation - - Inhaled Oxygen Concentration - - Weight 86.2 kg (190 lb) 10/11/2014 11:42 AM PROCESS MACHINE OPERATOR Height 180.3 cm (5' 11) 10/11/2014 11:42 AM PROCESS MACHINE OPERATOR Body Mass Index 26.5 10/11/2014 11:42 AM PROCESS MACHINE OPERATOR Plan of Treatment Health Maintenance Due Date [...] patient's age to complete this topic Insurance [facility] Care Teams Chief Cloth Finishing Range Operator Relationship Specialty Start Date End Date Willie Torres MD [address] [place] [address] PCP - General 06/22/14
--- OUTSIDE RECORDS SUMMARY | 2025-03-30 09:10 | XMS_ITS | Clinical Summary ---
Author Organization [facility] Address [address] [facility] , [address] [place] [address] Phone Care Team Providers Care Animal Husbandry Professor Name Role Phone [facility] Unavailable Unava ilable Conditions or Problems Problem Name Problem Code Onset Date Status Entry Date Provider Comment Standard Description Annotate Median neuropathy, right 307430458 (SNOMED CT) Active Jamir Cowan MD Median neuropathy Bilat carpal tunnel syndrome G56.00 (ICD-10-CM) Active Bhumi Aldrich MD Carpal tunnel syndrome, unspecified upper limb Paresthesias 43123017 (SNOMED CT) Active Bhumi Aldrich MD Paresthesia Peripheral neuropathy 488499657 (SNOMED CT) Active Bhumi Aldrich MD Peripheral nerve disease Medications Medication Instructions Start Date Stop Date Generic Name [facility] Provider ADVIL CAPS 5 IBUPROFEN CAPS [id number] Bhumi Aldrich MD ALEVE TABS 5 NAPROXEN SODIUM TABS [id number] Bhumi Aldrich MD MULTIVITAMINS ORAL CAPSULE 5 MULTIPLE VITAMIN [id number] Bhumi Aldrich MD FISH OIL CAPS 5 OMEGA-3 FATTY ACIDS CAPS [id number] Bhumi Aldrich MD Medications Administered No information [...] Hemoglobin A1c/Hemoglobin, total in Blood - % [id number] S * angioten sin 1 converting enzyme, [...] [Mass/volume] in Serum or Plasma by Electrophoresis [id number] * g/dL beta 2 g lobulin [id number] * g/dL beta 1 g lobulin ALPHA [...] Procedures Code Procedure Name Date Entry Date CPT-50357 Nerve Conduction 7-8 studies CPT-69471 EMG with NCS (5+ muscles) - 1 limb ORDERS We will call with test results ORDERS SHIELA (Angiotensin Converting Enzyme) 09/27 ORDERS MAYNOR ORDERS CBC no Diff/ Platelet 09/27 ORDERS ESR (Sedimentation Rate) 201 03/02/26 ORDERS Glucose Fasting ORDERS Hemoglobin A1C ORDERS Lyme Total Ab w/Refl ex (reflex to Western Blot) ORDERS Rheumatoid (RA) Factor 09/27 ORDERS Protein Electrophoresis Serum w/Interp 20 18/09/25 [facility]-[id number] Documentation of current medicatio ns ORDERS Occupational Therapy ORDERS Follow up as needed ORDERS Instructions for Staff 08/16 ORDERS EMG one upper/one lower 2015 CPT-14853 Nerve Conduction 9-10 studies CPT-08314 EMG with NCS (5+ muscles) - 1 limb 09/10 ORDERS Follow up as needed ORDERS We will call with test results [facility]-[id number] Documentation of current medicatio ns Vital Signs [...]
--- OUTSIDE RECORDS SUMMARY | 2025-03-30 09:10 | XMS_ITS | Clinical Summary ---
Author Organization [employer] [facility] Address [address] [place] [address] Care Team Providers Care Television Repairman Name Role Phone Willie Torres MD Primary [...] days. 28 Capsule 5 03/12/20 25 Active Problems Problem Noted Date Diagnosed Date Peripheral sensory neuropathy 11/07/2017 Bilateral edema of lower extremity 11/03/2015 Varicose veins 11/03/2015 Lipoma of torso 11/03/2015 Hammer toe of right foot 11/03/2015 Melanoma 06/18/2013 Encounters Date Type Department Care Team Description 03/06/2025 Orders Only [facility] Scanner 1 scan: (1-Ord) [facility], 03/06/2025 02/26/2025 Telephone [facility] [address] [place] [address] Stella Lainez PA Results 02/25/2025 12:50 PM CDT Office Visit [facility] [address] [place] [address] Stella Lainez PA Fever 02/25/2025 Travel from [...] on file Legal Sex Male 5:40 AM R AND D LAB TECHNICIAN Gender Identity Not on file Sexual Orientation [...] 175.3 cm (5' 9) 10/01/2024 9:13 AM R AND D LAB TECHNICIAN Body Mass Index 29.58 10/01/2024 9:13 AM R AND D LAB TECHNICIAN Plan of Treatment Health Maintenance Due [...] Procedure Name Priority Date/Time Associated Diagnosis Comments SCAN-ULTRASOUND REPORT 12:00 AM CDT URINALYSIS MACROSCOPIC - [facility] ONLY POC DIP ([facility]) Routine 02/25/2025 1:38 PM CDT Influenza-like illness CBC WITH AUTO DIFFERENTIAL Routine 02/25/2025 1:37 PM CDT Influenza-like illness COMP METABOLIC PANEL Routine 02/25/2025 1:37 PM CDT Influenza-like illness LYME SCREEN W/REFLEX Routine 02/25/2025 1:37 PM CDT Influenza-like illness EHRLICHIA CHAFFEENSIS DNA REAL TIME PCR ([facility]) Routine 02/25/2025 1:37 PM CDT Influenza-like illness BABESIA MICROTI PCR Routine 02/25/2025 1 :37 PM CDT Influenza-like illness ANAPLASMA PHAGOCYTOPHILUM DNA, QL REAL TIME PCR ([facility]) Routine 02/25/2025 1:37 PM CDT Influenza-like illness URINE CULTURE Routine 02/25/2025 1:36 PM CDT Influenza-like illness URINALYSIS MICROSCOPIC Routine 1:36 PM CDT Influenza-like illness ANTI HCV Routine 12/05/2017 10:45 AM CDT Need for hepatitis C screening test LIPID PANEL W REFLEX MEASURED LDL Routine 11/14/2017 8:42 AM CDT Dyslipidemia from Last 3 Months or Most Recently Relevant to Health Maintenance Results * SCAN-ULTRASOUND REPORT (03/06/2025 12:00 AM CDT) Anatomical Region Laterality Modality Other us Scanner OTHER Final Result * POCT Urinalysis Dipstick Only [[id number]] (02/25/2025 1:38 PM CDT) PH 6.5 5.0 - 8.0 [facility] SPECIFIC GRAVITY < OR = 1.005 1.001 - 1.035 [facility] Comment: Specific [place] values resulted are outside the analytical measurement range of this device. Recommend repeat/additional testing as clinically indicated. GLUCOSE NEGATIVE NEGATIVE [facility] BILIRUBIN NEGATIVE NEGATIVE [facility] KETONES NEGATIVE NEGATIVE [facility] OCCULT BLOOD NEGATIVE NEGATIVE [facility] PROTEIN NEGATIVE NEGATIVE [facility] NITRITE NEGATIVE NEGATIVE [facility] LEUKOCYTE ESTERASE NEGATIVE NEGATIVE [facility] Urine URINE SPECIMEN / Unknown 02/25/2025 1:38 PM CDT 02/25/2025 1:38 PM CDT Stella MACIEL URINE Final Result [facility] [address] [place] [address], [facility] [address] [place] [address] * EHRLICHIA CHAFFEENSIS DNA REAL TIME PCR ([facility]) [[id number]] - [facility] IN SCOPE (02/25/2025 1:37 PM CDT) Pathologist [facility] EHRLICHIA CHAFFEENSIS DNA REAL TIME PCR NOT DETECTED [facility] [employer] [facility], Comment: REFERENCE RANGE: NOT DETECTED This test was developed and its analytical performance characteristics have been determined by [facility]. It has not been cleared or approved by FDA. This assay has been validated pursuant to the CLIA regulations and is used for clinical purposes. Blood BLOOD SPECIMEN / Unknown 02/25/2025 1:37 PM CDT 02/25/2025 1:37 PM CDT Stella MACIEL SEND OUTS Final Result [facility] [address] [place] [address], [facility], [address] [place] [address] * ANAPLASMA PHAGOCYTOPHILUM DNA, QL REAL TIME PCR ([facility]) [[id number]] - [facility] IN SCOPE (02/25/2025 1:37 PM CDT) ANAPLASMA PHAGOCYTOPHILUM DNA, QL REAL TIME PCR NOT DETECTED [facility] [place], Comment: REFERENCE RANGE: NOT DETECTED This test was developed and its analytical performance characteristics have been determined by [employer] [facility]. It has not been cleared or approved by FDA. This assay has been validated pursuant to the CLIA regulations and is used for clinical purposes. Blood BLOOD SPECIMEN / Unknown 02/25/2025 1:37 PM CDT 02/25/2025 1:37 PM CDT Stella MACIEL SEND OUTS Final Result [facility] [address] [place] [address], [facility]/[place], [address] [place] [address] * Bab[employer] Micro[employer] PCR [[id number]] - Patients with systemic symptoms (fevers, chills) (02/25/2025 1:37 PM CDT) BABESIA MICROTI DNA, REAL TIME PCR NOT DETECTED [facility]/ [place], Comment: REFERENCE RANGE: NOT DETECTED This test was developed and its analytical performance characteristics have been determined by [employer]. It has not been cleared or approved by FDA. This assay has been validated pursuant to the CLIA regulations and is used for clinical purposes. Blood BLOOD SPECIMEN / Unknown 02/25/2025 1:37 PM CDT 02/25/2025 1:37 PM CDT Stella MACIEL SEND OUTS Final Result [facility] [facility] [address] [place] [address], [facility], [address] [place] [address] * Lyme Screen w/Reflex [[id number]] (02/25/2025 1:37 PM CDT) [facility] LYME AB, SCREEN < or = 0.90 index [facility], Comment: REFERENCE RANGE: < OR = 0.90 [...] PM CDT 02/25/2025 1:37 PM CDT Stella Lluvia MACIEL SEND OUTS Final Result [facility] [facility] [address] [place] [address], [facility], [address] [place] [address] * (ABNORMAL) CBC AND DIFFERENTIAL (02/25/2025 1:37 PM CDT) [facility] WHITE BLOOD CELL COUNT 5.3 3.8 - [...] PM CDT Stella MACIEL HEMATOLOGY Final Result [email or web address] [facility] [address] [place] [address], [facility] [address] [place] [address] * (ABNORMAL) COMP METABOLIC PANEL (02/25/2025 1:37 PM CDT) GLUCOSE 128(H) 65 - 99 mg/dL [facility] Comment: Fasting reference interval For someone without known diabetes, a glucose value >125 mg/dL indicates that they may have diabetes and this should be confirmed with a follow-up test. UREA NITROGEN (BUN) 23 7 - 25 mg/dL [email or web address] CREATININE 0.98 0.70 - 1.35 mg/dL [facility] EGFR 85 > OR = 60 mL/min/1. 73m2 [facility] BUN/CREATININE RATIO SEE NOTE: (calc) [facility] Comment: Not Reported: BUN [...] PM CDT Stella MACIEL CHEMISTRY Final Result [facility] [address] [place] [address], [place] [phone] [facility] [address] [place] [address] * URINALYSIS MICROSCOPIC [22361.1] - routine (02/25/2025 1:36 PM CDT) RBC 0-2 0-2, None Seen /HPF 02/26/2025 5:08 AM CDT [facility] WBC 0-2 0-2, 3-5, None Seen /HPF 02/26/2025 5:08 AM CDT [facility] BACTERIA None Seen None Seen, Rare, Few Bacteria/ HPF 02/26/2025 5:08 AM CDT [facility] EPITHELIAL CELLS None Seen None Seen, Few Epi/HPF 02/26/2025 5:08 AM CDT [facility] HYALINE CASTS 0-2 0-2, 3-5 /LPF 02/26/2025 5:08 AM CDT [facility] Urine URINE SPECIMEN / Unknown Non-Blood / Unknown 02/25/2025 1:36 PM CDT 02/25/2025 1:36 PM CDT Stella MACIEL URINE Final Result [facility] [address] [place] [address], [place] * URINE CULTURE [00637.2] (02/25/2025 1:36 PM CDT) Pathologist [facility] CULTURE No growth (<1,000 CFU/mL) 02/27/2025 7:03 PM CDT [facility] Urine URINE SPECIMEN / Unknown Non-Blood / Unknown 02/25/2025 1:36 PM CDT 02/25/2025 1:36 PM CDT us Stella MACIEL MICROBIOLOGY Final Result [facility] [address] [place] [address], [place] * ANTI HCV [[id number]] (12/05/2017 10:45 AM CDT) Pathologist [facility] HEPATITIS C ANTIBODY Non-React jose Non-React jose 12/05/2017 4:55 PM CDT [facility] Comment:Antibodies to HCV no t detected; does not exclude the possibility of exposure to HCV. Blood BLOOD SPECIMEN / Unknown Venipuncture / Unknown 12/05/2017 10:45 AM CDT 12/05/2017 10:45 AM CDT us Willie Torres MD SEND OUTS Final Result Performing Organization Address City/[facility]/ZIP Co de Phone Number [facility] [address] [place] [phone], [place] * LIPID PANEL W REFLEX MEASURED LDL (11/14/2017 8:42 AM CDT) Pathologist [facility] CHOLESTEROL,TOTAL 174 100 - 199 mg/dL 11/14/2017 2:02 PM CDT [facility] TRIGLYCERIDES 67 <150 mg/dL 11/14/2017 2:02 PM CDT [facility] HDL CHOLESTEROL 41 >40 mg/dL 8 2:02 PM CDT [facility] NON-HDL CHOLESTEROL 133 <145 mg/dl 11/14/2017 2:02 PM CDT [facility] CHOL/HDL RATIO 4.24 <4.50 11/14/2017 2:02 PM CDT [facility] LDL CHOLESTEROL 120 <=130 mg/dL 11/14/2017 2:02 PM CDT [facility] PROVIDER ORDERED STATUS RANDOM 11/14/2017 2:02 PM CDT [facility] Blood BLOOD SPECIMEN / Unknown Venipuncture / Unknown 11/14/2017 8:42 AM CDT 11/14/2017 8:42 AM CDT Willie Torres MD CHEMISTRY Final Result [facility] [address] [place] [address], from Last 3 Months or Most Recently Relevant to Health Maintenance Insurance [facility] MEDICARE PART A HB ONLY Care Teams Television Repairman Relationship Specialty Start Date End Date Willie Torres MD [address] [facility] [address] PCP - General Family Practice 11/02/15
--- OUTSIDE RECORDS SUMMARY | 2025-03-30 09:10 | XMS_ITS | Encounter Summary ---
Author Organization [facility] Address [address] [place] [address] Care Team Providers Care Cigar Head Pegger Name Role Phone Willie Torres MD Primary Care Provider Encounter Details Date Type Department Care Team (Late st Contact Info) Description 07/09/2014 Orders Only [facility] Orthopedic [facility] [address] [place] [id number] Misael Key MD [address] [place] [address] [place] [address] DJD (degenerative joint disease), ankle and foot [...] foot documented in this encounter Care Teams Cigar Head Pegger Relationship Specialty Start Date End Date Willie Torres MD [address] [place] [address] PCP - General 06/22/14 documented as of this encounter
[2025-03-30 09:17] VITALS: BP 138/75; PULSE 73; RESP 18; TEMP 36.7; O2SAT 97; BMI 28.0
--- NOTE | 2025-03-30 09:26 | ED_ITS ---
HPI - General Adult General Chief complaint: Laceration/Wound Stated complaint: Trailer door fell and hit head-lac Time Seen by Provider: 03/30/25 09:26 History of Present Illness HPI narrative: Patient had a trailer door slam on his head. No LOC has bleeding, well approximated laceration on upper scalp. 65-year-old man presenting to the emergency department following an injury to his head. Has apparently sustained a laceration. Trailer door opened onto his head. No significant neck or back pain. No loss of consciousness. No nausea. Related Data Home Medications ?Medication ?Instructions ?Recorded ?Confirmed No Known Home Medications 09/13/22 07/01/24 Allergies Allergy/AdvReac Type Severity Reaction Status Date / Time No Known Drug Allergies Allergy Verified 03/06/25 08:27 Review of Systems Status of ROS: Reports: 6 or more systems reviewed and unremarkable except as noted in History and below [facility] Medical History Skin cancer ?C44.90 - Unspecified malignant neoplasm of skin, unspecified (ICD-10) Surgical History History of left hip replacement ?Z96.642 - Presence of left artificial hip joint (ICD-10) History of foot surgery ?Z98.890 - Other specified postprocedural states (ICD-10) History of open reduction and internal fixation (ORIF) procedure (04/13/22) ?Z98.890 - Other specified postprocedural states (ICD-10) Social History Smoking Status: Never smoker Do you use any of these nicotine containing products: None Second hand tobacco smoke exposure: No How often do you have a drink containing alcohol: never AUDIT-C Alcohol total score: 0 Non-prescribed substance use: denies use Exam Narrative: Exam Narrative: Pleasant. NAD. Skin is warm and dry. Breathing easily. Neck is supple nontender. Back nontender. Cranial nerves 2-12 intact. Pupils are equal. There is a clotting linear laceration 1 and 1 quarter-inch on the upper parieto- occipital scalp. Oozes lightly with manipulation. Const: Vital Signs, click to edit/add: Vital Signs - 24 hr 03/30/25 09:17 Temperature 98.0 F Pulse Rate [Pulse Oximeter] 73 Respiratory Rate 18 Blood Pressure [Ri ght Upper Arm] 138/75 Pulse Oximetry 97 Oxygen Delivery Me thod Room Air Documenting provider has reviewed patient's vital signs: yes Course Vital Signs Vital signs: Initial Vital Signs Temperature 98.0 F 03/30/25 09:17 Temperature Source Temporal Artery Scan 03/30/25 09:17 Pulse Rate 73 03/30/25 09:17 Respiratory Rate 18 03/30/25 09:17 Blood Pressure 138/75 03/30/25 09:17 Blood Pressure Mean 96 03/30/25 09:17 Pulse Oximetry 97 03/30/25 09:17 Oxygen Delivery Method Room Air 03/30/25 09:17 Vital Signs Temperature 98.0 F 03/30/25 09:17 Pulse Rate 73 03/30/25 09:17 Respiratory Rate 18 03/30/25 09:17 Blood Pressure 138/75 03/30/25 09:17 Pulse Oximetry 97 03/30/25 09:17 Oxygen Delivery Method Room Air 03/30/25 09:17 Temperature 98.0 F 03/30/25 09:17 Pulse Rate 73 03/30/25 09:17 Respiratory Rate 18 03/30/25 09:17 Blood Pressure 138/75 03/30/25 09:17 Pulse Oximetry 97 03/30/25 09:17 Oxygen Delivery Method Room Air 03/30/25 09:17 Medical Decision Making MDM Narrative Medical decision making narrative: I think will heal better and more quickly certainly with some stabilization. Opted for otilia after discussion of options. Exam does not suggest need for any head imaging. Cleansed with Shur-Clens type solution. Stapled with good wound approximation and control of bleeding. See patient discharge plan for further discussion Can apply ice pack for comfort. Ibuprofen. Can remove otilia in 6 days. Okay to get wet but try not to soak while otilia are in. Medical Records Medical records reviewed: Yes I reviewed the patient's medical records Discharge Plan Discharge Clinical Impression: Laceration of scalp, Closed head injury Patient Disposition: Home, Self-Care Condition: Improved Additional Instructions: Can apply ice pack for comfort. Ibuprofen. Can remove otilia in 6 days. Okay to get wet but try not to soak while otilia are in. Prescriptions: No Action No Known Home Medications Follow Up/Referrals: Willie Torres MD [Primary Care Provider, Family Practice] Stand Alone Forms: [employer] Info Instructions
--- OUTSIDE RECORDS SUMMARY | 2025-03-30 09:46 | XMS_ITS | Clinical Summary ---
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 Jamir Cowan MD Median neuropathy Bilat carpal tunnel syndrome G56.00 (ICD-10-CM) Active Bhumi Aldrich MD Carpal tunnel syndrome, unspecified upper limb Paresthesias 81717988 (SNOMED CT) Active Bhumi Aldrich MD Paresthesia Peripheral neuropathy 261710084 (SNOMED CT) Active Bhumi Aldrich MD Peripheral nerve disease Medications Medication Instructions Start Date Stop Date Generic Name [facility] Provider ADVIL CAPS 5 IBUPROFEN CAPS [id number] Bhumi Aldrich MD ALEVE TABS 5 NAPROXEN SODIUM TABS [id number] Bhumi Aldrich MD MULTIVITAMINS ORAL CAPSULE 5 MULTIPLE VITAMIN [id number] Bhumi Aldrich MD FISH OIL CAPS 5 OMEGA-3 FATTY ACIDS CAPS [id number] Bhumi Aldrich MD Medications Administered No information [...] Hemoglobin A1c/Hemoglobin, total in Blood - % [id number] S * angioten sin 1 converting enzyme, [...] [Mass/volume] in Serum or Plasma by Electrophoresis [id number] * g/dL beta 2 g lobulin [id number] * g/dL beta 1 g lobulin ALPHA [...] Procedures Code Procedure Name Date Entry Date CPT-50710 Nerve Conduction 7-8 studies CPT-94552 EMG with NCS (5+ muscles) - 1 limb ORDERS We will call with test results ORDERS SHIELA (Angiotensin Converting Enzyme) 09/27 ORDERS MAYNOR ORDERS CBC no Diff/ Platelet 09/27 ORDERS ESR (Sedimentation Rate) 201 03/02/26 ORDERS Glucose Fasting ORDERS Hemoglobin A1C ORDERS Lyme Total Ab w/Refl ex (reflex to Western Blot) ORDERS Rheumatoid (RA) Factor 09/27 ORDERS Protein Electrophoresis Serum w/Interp 20 18/09/25 [facility]-[id number] Documentation of current medicatio ns ORDERS Occupational Therapy ORDERS Follow up as needed ORDERS Instructions for Staff 08/16 ORDERS EMG one upper/one lower 2015 CPT-30893 Nerve Conduction 9-10 studies CPT-33675 EMG with NCS (5+ muscles) - 1 limb 09/10 ORDERS Follow up as needed ORDERS We will call with test results [facility]-[id number] Documentation of current medicatio ns Vital Signs [...]
== END 2025-03-30 09:48 | disposition home or self-care (01) ==
LOC: ED 09:44
PROVIDERS: Emergency Provider Family Medicine; PCP Family Medicine
DX: S01.01XA Laceration without foreign body of scalp, initial encounter (principal); W26.9XXA Contact with unspecified sharp object(s), initial encounter
CPT/HCPCS: 12001; 99283; 99284